=== PATIENT | male | born 1955 | race Caucasian/White ===

== ENCOUNTER 2017-03-31 18:22 | Emergency (ER) | payer MEDICAID ==
[~2017-03-31] VITALS: Ht 180.3 cm; Wt 83.9 kg
--- NOTE | 2017-03-31 18:28 | NUR ---
[id number] [facility] [address]: SOB, WEAKNESS, Hx OF STAGE IV METASTATIC LUNG CANCER, NAD NOTED, VSS, WAITING FOR MD XIE.
--- NOTE | 2017-03-31 19:19 | NUR ---
RECEIVED REPORT FROM PEDRO DAVILA FOR REFUGIO. DR. RAMESH AT BEDSIDE FOR EVAL.
[2017-03-31] MEDS ORDERED: IV NS 0.9% 500 ML BAG IV ONE (19:30)
[2017-03-31 19:45] LABS: BASOPHILS # (AUTO) 0.1 /CMM (0.0-0.2); BASOPHILS % (AUTO) 1.3 % (0.0-2.0); EOSINOPHILS # (AUTO) 0.1 /CMM (0.0-0.7); EOSINOPHILS % (AUTO) 0.8 % (0.0-6.0); HEMATOCRIT 46 % (39-51); HEMOGLOBIN 15.7 g/dL (13.5-17.5); LYMPHOCYTES # (AUTO) 0.8 /CMM (0.8-4.8); LYMPHOCYTES % (AUTO) 7.4 % (20.0-44.0); MEAN CORPUSCULAR HEMOGLOBIN 31 PG (26.0-33.0); MEAN CORPUSCULAR HGB CONC 34 g/dl (31.0-36.0); MEAN CORPUSCULAR VOLUME 90 fL (80-96); MONOCYTES # (AUTO) 0.6 /CMM (0.1-1.30); MONOCYTES % (AUTO) 5.4 % (2.0-12.0); NEUTROPHILS # (AUTO) 9.7 /CMM (1.8-8.9); NEUTROPHILS % (AUTO) 85.1 % (43.0-81.0); PLATELET COUNT (AUTO) 121 /CMM (150-450); RDW COEFFICIENT OF VARIATION 14.6 (11.5-15.0); RED BLOOD CELL COUNT(AUTO) 5.07 MIL/uL (4.5-6.0); WHITE BLOOD COUNT (AUTO) 11.3 K/uL (4.3-11.0)
[2017-03-31 19:48] LABS: CALCIUM, SERUM 8.5 mg/dL (8.5-10.1); CARBON DIOXIDE 31 mmol/L (21-32); CHLORIDE 107 mmol/L (98-107); GLUCOSE 81 mg/dL (74-106); POTASSIUM 3.5 mmol/L (3.5-5.1); SODIUM SERUM 141 mmol/L (136-145); UREA NITROGEN, BLOOD 28 mg/dL (7-18)
--- NOTE | 2017-03-31 19:48 | NUR ---
RADIOLOGY AT BEDSIDE FOR XR
[2017-03-31 19:52] LABS: INR 0.9 (0.87-1.13); PROTHROMBIN TIME 9.4 SECS (9.5-12.7)
[2017-03-31 19:54] LABS: ALANINE AMINOTRANSFERASE 48 U/L (12-78); ALBUMIN 2.6 g/dL (3.4-5.0); ALKALINE PHOSPHATASE 84 U/L (46-116); ASPARTATE AMINOTRANSFERASE 27 U/L (15-37); BILIRUBIN,DIRECT 0.2 mg/dL (0.0-0.2); BILIRUBIN,TOTAL 0.9 mg/dL (0.2-1.0); TOTAL PROTEIN, SERUM 5.9 g/dL (6.4-8.2)
[2017-03-31 19:56] LABS: TROPONIN I < 0.017 ng/mL (0.00-0.056)
[2017-03-31] MEDS ORDERED: IV NS 0.9% 250 ML IV ONE (20:02)
[2017-03-31] MEDS ORDERED: IOHEXOL-350 100 ML VIAL IV ONE (20:02)
--- NOTE | 2017-03-31 20:02 | NUR ---
PT TO CT VIA WC. PT STABLE
--- NOTE | 2017-03-31 20:22 | NUR ---
PT RETURNED FROM CT.
[2017-03-31 20:42] LABS: BAND % (MANUAL) 6 % (0.0-5.0); LYMPHOCYTES % (MANUAL) 12 % (16-48); MONOCYTES % (MANUAL) 10 % (0-11.0); NEUTROPHILS % (MANUAL) 72 (42-76)
--- NOTE | 2017-03-31 20:46 | NUR ---
AT BEDSIDE FOR EVAL.
[2017-03-31] MEDS ORDERED: IV NS 0.9% 1,000 ML BAG IV ONE (21:00)
--- NOTE | 2017-03-31 21:05 | NUR ---
Patient does not wish to proceed with medical care recommended by Dr. Lo. Patient given information related to possible complications, up to and including , which could occur as a result of leaving the hospital at this time. Patient verbalizes understanding of risks involved due to leaving against medical advice. Patient has signed AMA form.
--- NOTE | 2017-03-31 21:23 | NUR ---
Patient discharged to home in stable condition. Written and verbal after care instructions given. Patient verbalizes understanding of instruction. ambulatory with a steady gait. w/c per pt request. pt instructed not to drive. pt verbalize understanding.
[2017-03-31 21:24] VITALS: BP 126/58
[2017-04-01] MEDS ORDERED: HYDR5TAB2 PO (14:58)
[2017-04-01] MEDS ORDERED: LEVE500T9 PO (14:58)
[2017-04-01] MEDS ORDERED: MIDO5TAB PO (14:58)
[2017-04-01] MEDS ORDERED: HYDR-3026 PO (14:59)
[2017-04-01] MEDS ORDERED: TIOT18CA3 IH (15:05)
== END 2017-03-31 21:25 | disposition left against medical advice (07) ==
LOC: ER 18:27
DX: R09.02 Hypoxemia (principal); R55 Syncope and collapse; C34.90 Malignant neoplasm of unspecified part of unspecified bronchus or lung; Z92.21 Personal history of antineoplastic chemotherapy
CPT/HCPCS: 36415; 71010; 71275; 80048; 80076; 84484; 85025; 85730; 93005; 99285; A4606; J7040 ×2; J7050; Q9967; Z7610

== ENCOUNTER 2017-04-01 14:41 | Inpatient (IN) | payer MEDICAID ==
[~2017-04-01] VITALS: Ht 193 cm; Wt 81.6 kg
--- NOTE | 2017-04-01 14:50 | NUR ---
[id number] FROM HOME: BILATERAL LOWER EXTREMITIES EDEMA, POSSIBLE CELLULITIS. GENERALIZED BODY WEAKNESS. BS IN FIELD 128. A/OX 4. BREATHING EVEN AND UNLABORED. NO SOB. VITALS STABLE. SAFETY AND COMFORT MEAURES IN PLACE. AWAITING MD ORDERS.
--- NOTE | 2017-04-01 14:55 | NUR ---
NEW IV STARTED ON LAC, 20 G. BLOOD DRAWN AND SENT TO LAB. IVF STARTED PER MD ORDERS.
[2017-04-01] MEDS ORDERED: MIDO5TAB PO (14:58)
[2017-04-01] MEDS ORDERED: LEVE500T9 PO (14:58)
[2017-04-01] MEDS ORDERED: HYDR5TAB2 PO (14:58)
[2017-04-01] MEDS ORDERED: HYDR-3026 PO (14:59)
[2017-04-01] MEDS ORDERED: IV NS 0.9% 1,000 ML BAG IV ONE (15:00)
[2017-04-01 15:02] LABS: BASOPHILS # (AUTO) 0.2 /CMM (0.0-0.2); BASOPHILS % (AUTO) 1.9 % (0.0-2.0); EOSINOPHILS # (AUTO) 0.1 /CMM (0.0-0.7); EOSINOPHILS % (AUTO) 0.6 % (0.0-6.0); HEMATOCRIT 47 % (39-51); HEMOGLOBIN 15.7 g/dL (13.5-17.5); LYMPHOCYTES # (AUTO) 0.8 /CMM (0.8-4.8); LYMPHOCYTES % (AUTO) 8.1 % (20.0-44.0); MEAN CORPUSCULAR HEMOGLOBIN 31 PG (26.0-33.0); MEAN CORPUSCULAR HGB CONC 34 g/dl (31.0-36.0); MEAN CORPUSCULAR VOLUME 92 fL (80-96); MONOCYTES # (AUTO) 0.6 /CMM (0.1-1.30); MONOCYTES % (AUTO) 5.8 % (2.0-12.0); NEUTROPHILS # (AUTO) 8.2 /CMM (1.8-8.9); NEUTROPHILS % (AUTO) 83.6 % (43.0-81.0); PLATELET COUNT (AUTO) 127 /CMM (150-450); RDW COEFFICIENT OF VARIATION 14.4 (11.5-15.0); RED BLOOD CELL COUNT(AUTO) 5.13 MIL/uL (4.5-6.0); WHITE BLOOD COUNT (AUTO) 9.9 K/uL (4.3-11.0)
[2017-04-01] MEDS ORDERED: TIOT18CA3 IH (15:05)
[2017-04-01 15:11] LABS: CALCIUM, SERUM 8.6 mg/dL (8.5-10.1); CARBON DIOXIDE 31 mmol/L (21-32); CHLORIDE 108 mmol/L (98-107); CREATININE 1.1 mg/dL (0.6-1.3); GLUCOSE 120 mg/dL (74-106); POTASSIUM 3.5 mmol/L (3.5-5.1); SODIUM SERUM 143 mmol/L (136-145); UREA NITROGEN, BLOOD 24 mg/dL (7-18)
[2017-04-01 15:15] LABS: INR 0.93 (0.87-1.13); PROTHROMBIN TIME 9.7 SECS (9.5-12.7)
--- NOTE | 2017-04-01 15:20 | NUR ---
PATIENT TAKEN TO CT VIA STRETCHER.
[2017-04-01 15:23] LABS: TROPONIN I < 0.017 ng/mL (0.00-0.056)
--- NOTE | 2017-04-01 15:27 | NUR ---
PATIENT RETURNED FROM CT. US TECH AT BEDSIDE.
--- NOTE | 2017-04-01 17:02 | NUR ---
Bed 312-2
--- NOTE | 2017-04-01 17:18 | NUR ---
REPORT GIVEN TO RNDEBORA FOR ADMISSION.
[2017-04-01 18:00] VITALS: BP 96/52
[2017-04-01] MEDS ORDERED: LEVETIRACETAM (250 MG) 250 MG TABLET PO SCH (18:00)
[2017-04-01] MEDS ORDERED: MIDODRINE HCL (5MG) 5 MG TABLET PO SCH (18:00)
[2017-04-01] MEDS: HYDROCORTISONE 5 MG TABLET PO SCH (18:00)
--- NOTE | 2017-04-01 18:05 | NUR ---
PATIENT TRANSPORTED TO [facility] VIA STRETCHER. RNDEBORA TO PROVIDE REFUGIO.
[2017-04-01] MEDS ORDERED: hydrOXYzine PAMOATE 25 MG CAPSULE PO PRN (18:30)
[2017-04-01] MEDS ORDERED: MAGNESIUM HYDROXIDE 30 ML UDC PO PRN (19:00)
[2017-04-01] MEDS ORDERED: ONDANSETRON HCL/PF 4 MG/2 ML VIAL IVP PRN (19:00)
[2017-04-01] MEDS ORDERED: ACETAMINOPHEN 325 MG TABLET PO PRN (19:00)
[2017-04-01] MEDS ORDERED: HYDROCODONE/APAP 10/325MG 1 EA TABLET PO PRN (19:00)
[2017-04-01] MEDS ORDERED: MAG HYDROX/AL HYDROX/SIMETH 30 ML UDC PO PRN (19:00)
[2017-04-01] MEDS ORDERED: Z GUARD REMEDY 2 OZ OINT TP PRN (19:00)
[2017-04-01] MEDS ORDERED: ZOLPIDEM TARTRATE 5 MG TABLET PO PRN (19:00)
[2017-04-01] MEDS ORDERED: HYDROCODONE/APAP 5/325MG 1 EACH TABLET PO PRN (19:00)
--- NOTE | 2017-04-01 19:04 | NUR ---
MST/RN - Notes Admitted patient from ER who came in for generalized weakness and BLE swelling. Patient awake, A/O x 3, denies pain, no apparent distress seen. Patient oriented to the room and use of call light. All belongings accounted. Skin assessment done and documented. Wound nurse and dietary triggered. All needs attended and met. Admission orders noted and carried out. Pharmacy notified that meds scheduled at 1800 not available in the [facility]. Will endorse to night RN for continuity of care.
--- NOTE | 2017-04-01 19:30 | NUR ---
RN OPENING NOTES RECEIVED REPORT FROM DAYSHIFT RN. FOUND Pt AWAKE, RESTING IN BED. SLIGHTLY DESATING TO 88% FOR O2. PLACED Pt ON NC 2L. Pt IS ASYMPTOMATIC. DENIES ANY SOB OR CHEST PAIN. NO OTHER S/S OF ACUTE DISTRESS NOTED. Pt IS A/OX3, VERBAL, ABLE TO MAKE NEEDS KNOWN. IV ACCESS ON LAC #20G. SAFETY MEASURES IN PLACE. BED LOW, LOCKED, HOB ELEVATED, SIDE RAILS UP, CALL LIGHT AND BEDSIDE TABLE WITHIN REACH. WILL CONTINUE TO MONITOR Pt THROUGHOUT THE NIGHT FOR SAFETY.
[2017-04-01 20:00] VITALS: BP 103/66
[2017-04-01 20:11] VITALS: BP 103/66
[2017-04-01] MEDS ORDERED: FLU VACC QS 2017-18(36MOS+)/PF 0.5 ML DISP.SYRIN IM ONE (21:30)
[2017-04-01] MEDS ORDERED: PNEUMOCOCCAL 23-VAL P-SAC VAC 0.5 ML VIAL SQ ONE (21:30)
[2017-04-01] MEDS: MIDODRINE HCL (5MG) 5 MG TABLET PO SCH (21:47)
[2017-04-01] MEDS: ENOXAPARIN SODIUM 40 MG/0.4 ML DISP.SYRIN SQ SCH (21:49)
[2017-04-01] MEDS: IV NS 0.9% 1,000 ML IV PRN (22:13)
--- NOTE | 2017-04-02 06:35 | NUR ---
RN CLOSING NOTES NO SIGNIFICANT CHANGES IN Pt's CONDITION. Pt REMAINS STABLE AT THIS TIME. NO S/S OF ACUTE DISTRESS OR SEVERE SOB NOTED DURING THE NIGHT. ALL NEEDS MET AND ATTENDED TO. SAFETY MEASURES IN PLACE. BED LOW, LOCKED, HOB ELEVATED, SIDE RAILS UP, CALL LIGHT AND BEDSIDE TABLE WITHIN REACH. WILL ENDORSE TO DAYSHIFT RN FOR Pt's REFUGIO.
--- NOTE | 2017-04-02 07:30 | NUR ---
RN MS NOTES PATIENT ALERT AND ORIENTED X4, BREATHING EVEN AND UNLABORED, NO SOB, NO DISTRESS NOTED, ON O2 AT 2LPM VIA NC WITH SPO2 OF 92%, PIV PATENT AND FLUSHES WELL, IVF INFUSING AT 75CC/HR, NEEDS ATTENDED AND MET, SAFETY MEASURES IN PLACED, CALL LIGHT WITHIN REACH, WILL CONTINUE TO MONITOR.
[2017-04-02] MEDS: IPRATROPIUM NEB FS 0.5 MG/2.5 ML AMPUL.NEB NEB SCH ×4 (07:35→20:29)
[2017-04-02 08:00] VITALS: BP 86/48
[2017-04-02] MEDS: HYDROCORTISONE 5 MG TABLET PO SCH ×2 (08:47→16:40)
[2017-04-02] MEDS: MIDODRINE HCL (5MG) 5 MG TABLET PO SCH ×3 (08:48→16:40)
[2017-04-02] MEDS ORDERED: TIOTROPIUM BROMIDE 6 CAP/BOX CAP.W.DEV IH SCH (09:00)
[2017-04-02] MEDS: IV NS 0.9% 1,000 ML IV PRN (12:14)
[2017-04-02 12:15] LABS: BASOPHILS % (AUTO) 0.1 % (0.0-2.0); EOSINOPHILS % (AUTO) 0.4 % (0.0-6.0); HEMATOCRIT 39 % (39-51); HEMOGLOBIN 13.5 g/dL (13.5-17.5); LYMPHOCYTES # (AUTO) 0.6 /CMM (0.8-4.8); LYMPHOCYTES % (AUTO) 6.4 % (20.0-44.0); MEAN CORPUSCULAR HEMOGLOBIN 31 PG (26.0-33.0); MEAN CORPUSCULAR HGB CONC 35 g/dl (31.0-36.0); MEAN CORPUSCULAR VOLUME 90 fL (80-96); MONOCYTES # (AUTO) 0.5 /CMM (0.1-1.30); MONOCYTES % (AUTO) 5.5 % (2.0-12.0); NEUTROPHILS # (AUTO) 7.8 /CMM (1.8-8.9); NEUTROPHILS % (AUTO) 87.6 % (43.0-81.0); PLATELET COUNT (AUTO) 100 /CMM (150-450); RDW COEFFICIENT OF VARIATION 15.4 (11.5-15.0); WHITE BLOOD COUNT (AUTO) 8.9 K/uL (4.3-11.0)
[2017-04-02] MEDS ORDERED: IV NS 0.9% 1,000 ML IV PRN (12:23)
[2017-04-02 12:40] LABS: CALCIUM, SERUM 7.7 mg/dL (8.5-10.1); CREATININE 0.8 mg/dL (0.6-1.3); MAGNESIUM 1.8 mg/dL (1.8-2.4); PHOSPHORUS 3.1 mg/dL (2.5-4.9); POTASSIUM 3.5 mmol/L (3.5-5.1)
[2017-04-02 12:49] LABS: THYROID STIMULATING HORMONE 1.261 uIU/mL (0.358-3.74)
[2017-04-02] MEDS ORDERED: FEE PK DOSING 1 MIN EA MC ONE (13:38)
[2017-04-02 14:00] VITALS: BP 85/50
[2017-04-02] MEDS: VANCOMYCIN 1.25 GM in IV D5W 500 ML IV SCH ×2 (14:38→22:28)
[2017-04-02 15:04] VITALS: BP_SYST 110; BP_SYST 99; BP_DIAS 59; BP_DIAS 66
--- NOTE | 2017-04-02 15:05 | NUR ---
RN MS NOTES ORTHOSTATIC COMPLETED FOR LYING AND SITTING ONLY, PATIENT UNABLE TO DO STANDING D/T WEAKNESS. PATIENT IS TOO WEAK TO STAND UP BY HIMSELF, ASSISTED BY PT FROM BED TO COMMODE, HOWEVER, PATIENT COULDN'T STAND STRAIGHT FOR A LONG TIME.
--- NOTE | 2017-04-02 15:24 | NUR ---
MRI APPROVED BY DR. BELLO. ANODE REBUILDER WILL BE NOTIFIED SOON.
[2017-04-02] MEDS: MEROPENEM 1 G in IV NS 0.9% 100 ML IV SCH (15:58)
[2017-04-02 16:00] VITALS: BP 85/50
[2017-04-02 16:13] LABS: URIC ACID 4.7 mg/dL (2.6-7.2)
--- NOTE | 2017-04-02 16:32 | NUR ---
RN MS NOTES UNABLE TO OBTAIN RECORDS FROM DR. DALY, OFFICE CLOSED FOR TODAY.
--- NOTE | 2017-04-02 19:30 | NUR ---
MS/RN OPENING NOTES PT AWAKE, A/OX3. ABLE TO MAKE NEEDS KNOWN. ON 3L O2 VIA NC, BREATHING EVEN AND UNLABORED. NO APPARENT SIGNS OF DISTRESS. DENIES SOB. DENIES PAIN. CURRENTLY ON NPO STATUS FOR CT OF ABDOMEN AND CHEST W/WO CONTRAST. CONSENTS SIGNED. MRI OF BRAIN TOMORROW, CONSENT SIGNED. IV TO LAC PATENT AND INTACT RUNNING IVF ORDERED. NO INFILTRATION NOTED. BED IN LOW/LOCKED POSITION WITH CALL LIGHT IN REACH. SIDE RAILS UPX2. BED ALARM ON FOR SAFETY. WILL CONTINUE MONITOR
--- NOTE | 2017-04-02 19:33 | NUR ---
RN MS NOTES PATIENT ALERT AND ORIENTED X3, BP LOW BUT ASYMPTOMATIC, NO S/SX OF DISTRESS NOTED, ON O2 AT 3LPM VIA NC WITH SPO2 OF 89-92%, PER PATIENT ITS HIS BASELINE DUE TO COPD, AND DOES NOT WANT HIS OXYGEN INCREASED. PATIENT IS ON BREATHING TREATMENT EVERY 6 HOURS, PER PATIENT HE FEELS BETTER AFTER EACH TREATMENT. PATIENT IS CURRENTLY NPO AT THIS TIME DUE TO PENDING CT CHEST AND ABDOMEN, CONSENTS SIGNED AND PLACED IN CHART. PATIENT IS ON IVF AND TOLERATING WELL, ALL DUE MEDICATIONS GIVEN ORDERED, MRI WILL BE DONE TOMORROW PER TECH, KEEP PATIENT NPO AFTER MIDNIGHT FOR MRI. ALL NEEDS ATTENDED AND MET, CALL LIGHT WITHIN REACH, ENDORSED TO PRINTING AGENT FOR REFUGIO.
[2017-04-02] MEDS ORDERED: IOHEXOL-300 100 ML VIAL IV ONE (19:58)
[2017-04-02] MEDS ORDERED: IV NS 0.9% 250 ML IV ONE (19:58)
[2017-04-02 20:00] VITALS: BP 94/55
--- NOTE | 2017-04-02 20:04 | NUR ---
MS/RN PT WENT DOWN FOR CT SCAN
--- NOTE | 2017-04-02 20:33 | NUR ---
MS/RN NOTES PT RETURNED TO UNIT
[2017-04-02] MEDS: LEVETIRACETAM (250 MG) 250 MG TABLET PO SCH (21:05)
[2017-04-02] MEDS: ENOXAPARIN SODIUM 40 MG/0.4 ML DISP.SYRIN SQ SCH (21:22)
--- NOTE | 2017-04-02 23:49 | NUR ---
MS/RN NOTES VANCO CURRENTLY INFUSING. FREQUENTLY BEEPS DUE TO PT MOVING ARM. PT REFUSING SECOND IV INSERTION AT THIS TIME IN ORDER TO START MERREM. WILL BEGIN MERREM UPON VANCO COMPLETION
[2017-04-03] MEDS: MEROPENEM 1 G in IV NS 0.9% 100 ML IV SCH ×4 (00:33→23:37)
[2017-04-03] MEDS: IPRATROPIUM NEB FS 0.5 MG/2.5 ML AMPUL.NEB NEB SCH ×4 (02:11→20:17)
[2017-04-03] MEDS: VANCOMYCIN 1.25 GM in IV D5W 500 ML IV SCH ×2 (05:49→21:42)
--- NOTE | 2017-04-03 07:00 | NUR ---
RN NOTES: PATIENT RESTING IN BED. ALERT ORIENTED X3. NONLABORED BREATHING NOTED ON 3L NASAL CANNULA. IV SITE PATENT AND INTACT. PATIENT DENIES PAIN AT THE MOMENT. BED IN LOWEST LOCKED POSITION. WILL CONTINUE TO MONITOR. CALL LIGHT WITHIN REACH
--- NOTE | 2017-04-03 07:29 | NUR ---
MS/RN CLOSING NOTES PT ASLEEP, EASILY AROUSABLE TO NAME. REMAINS ON 3L O2 VIA NC, BREATHING EVEN AND UNLABORED. DENIES SOB AND PAIN. NO APPARENT DISTRESS NOTED. IV TO LAC PATENT AND INTACT CURRENTLY RUNNING VANCO. ENDORSED TO AM SHIFT RN TO INFUSE MERREM UPON COMPLETION OF VANCO. MRI OF BRAIN TODAY. CONSENT/CHECKLIST IN CHART. MADE PT COMFORTABLE DURING SHIFT. ALL NEEDS MET. BED IN LOW/LOCKED POSITION WITH CALL LIGHT IN REACH. SIDE RAILS UPX2 AND BED ALARM ON FOR SAFETY. DAY SHIFT RN TO FOLLOW UP WITH [facility] FOR PT'S MEDICAL RECORDS.
[2017-04-03 07:42] LABS: BASOPHILS % (AUTO) 0.2 % (0.0-2.0); EOSINOPHILS # (AUTO) 0.1 /CMM (0.0-0.7); EOSINOPHILS % (AUTO) 0.8 % (0.0-6.0); HEMATOCRIT 33 % (39-51); HEMOGLOBIN 11.6 g/dL (13.5-17.5); LYMPHOCYTES # (AUTO) 0.5 /CMM (0.8-4.8); MEAN CORPUSCULAR HEMOGLOBIN 32 PG (26.0-33.0); MEAN CORPUSCULAR HGB CONC 35 g/dl (31.0-36.0); MEAN CORPUSCULAR VOLUME 90 fL (80-96); MONOCYTES # (AUTO) 0.5 /CMM (0.1-1.30); MONOCYTES % (AUTO) 6.8 % (2.0-12.0); NEUTROPHILS # (AUTO) 5.8 /CMM (1.8-8.9); NEUTROPHILS % (AUTO) 85.2 % (43.0-81.0); PLATELET COUNT (AUTO) 81 /CMM (150-450); RDW COEFFICIENT OF VARIATION 15.3 (11.5-15.0); RED BLOOD CELL COUNT(AUTO) 3.69 MIL/uL (4.5-6.0); WHITE BLOOD COUNT (AUTO) 6.9 K/uL (4.3-11.0)
[2017-04-03 08:00] VITALS: BP 92/53
[2017-04-03 08:06] LABS: CALCIUM, SERUM 7.4 mg/dL (8.5-10.1); CREATININE 0.7 mg/dL (0.6-1.3); MAGNESIUM 1.5 mg/dL (1.8-2.4); PHOSPHORUS 2.8 mg/dL (2.5-4.9); POTASSIUM 3.2 mmol/L (3.5-5.1)
[2017-04-03 09:14] LABS: BAND % (MANUAL) 6 % (0.0-5.0); EOSINOPHILS % (MANUAL) 3 % (0-4); LYMPHOCYTES % (MANUAL) 3 % (16-48); MONOCYTES % (MANUAL) 8 % (0-11.0); NEUTROPHILS % (MANUAL) 80 (42-76)
[2017-04-03] MEDS ORDERED: GADOVERSETAMIDE 2.5 MMOL/5 ML VIAL IJ ONE (09:29)
[2017-04-03] MEDS: LEVETIRACETAM (250 MG) 250 MG TABLET PO SCH ×2 (09:41→16:19)
[2017-04-03] MEDS: MIDODRINE HCL (5MG) 5 MG TABLET PO SCH ×3 (09:42→16:19)
[2017-04-03] MEDS: HYDROCORTISONE 5 MG TABLET PO SCH ×2 (09:42→16:18)
--- NOTE | 2017-04-03 10:00 | NUR ---
RN NOTES: IV ANTIBIOTICS ADMINISTERED LATE. PREVIOUS INFUSION, VANCOMYCIN WAS STILL INFUSING UPON INITIAL ASSESSMENT. PATIENT LEFT AT 0800 FOR MRI FOR THE BRAIN. IV ADMINISTERED WHEN PATIENT CAME BACK ON TO THE UNIT
[2017-04-03] MEDS: POTASSIUM CHLORIDE 20 MEQ TAB.PRT.SR PO SCH ×3 (11:26→12:45)
[2017-04-03] MEDS: Magnesium 1GM/D5W 100ML PREMIX 100 ML IV SCH ×2 (11:29→12:45)
[2017-04-03 16:08] VITALS: BP 94/64
--- NOTE | 2017-04-03 18:08 | NUR ---
rn notes: CONTACTED [facility] SEVERAL TIMES. CENTER IS CLOSED TODAY DUE TO 'S DAY. ALSO VOICEMAIL IS FULL
--- NOTE | 2017-04-03 19:20 | NUR ---
RN NOTES: PATIENT RESTING IN BED. ALERT ORIENTED X3. NONLABORED BREATHING NOTED ON 3L NASAL CANNULA. IV SITE PATENT AND INTACT. PATIENT DENIES PAIN AT THE MOMENT. BED IN LOWEST LOCKED POSITION. CALL LIGHT WITHIN REACH. WILL ENDORSE TO NEXT SHIFT.
--- NOTE | 2017-04-03 19:57 | NUR ---
MS/RN OPENING NOTES PATIENT IN BED, AWAKE, ALERT X3, ABLE TO FOLLOW SIMPLE COMMANDS AND RESPOND WITH SHORT ANSWER. PROVIDED FLUIDS AND USING HIS CELLPHONE. CALL LIGHTS WITHIN REACH, PERSONAL BELONGINGS WITHIN REACH. DENIES PAIN. RECEIVE REPORT FROM AM RN REGARDING REFUGIO AND AWAITING AND TO F/U PREVIOUS MEDICAL RECORDS FROM [facility] TO PROVIDE TO MD TO DETERMINE CONDITION PROCEDURE MRI DONE AND MD MADE AWARE. WILL CONTINUE TO PROVIDE CARE.
[2017-04-03 20:00] VITALS: BP 94/59
[2017-04-03] MEDS: IV NS 0.9% 1,000 ML IV PRN (20:04)
[2017-04-03] MEDS ORDERED: VANCOMYCIN 0.75 GM in IV D5W 250 ML IV SCH (22:00)
--- NOTE | 2017-04-04 01:00 | NUR ---
MS/RN NOTES PATENT REFUSED TO HAVE IVRUNNING WHILE SLEEPING WILL PROVIDE FLUIDS. AND MONITOR
[2017-04-04] MEDS: IPRATROPIUM NEB FS 0.5 MG/2.5 ML AMPUL.NEB NEB SCH ×4 (01:30→19:28)
[2017-04-04] MEDS: MEROPENEM 1 G in IV NS 0.9% 100 ML IV SCH ×3 (05:25→21:53)
[2017-04-04 06:43] LABS: EOSINOPHILS # (AUTO) 0.1 /CMM (0.0-0.7); EOSINOPHILS % (AUTO) 1.1 % (0.0-6.0); HEMATOCRIT 31 % (39-51); LYMPHOCYTES # (AUTO) 0.4 /CMM (0.8-4.8); LYMPHOCYTES % (AUTO) 7.5 % (20.0-44.0); MEAN CORPUSCULAR HEMOGLOBIN 31 PG (26.0-33.0); MEAN CORPUSCULAR HGB CONC 35 g/dl (31.0-36.0); MEAN CORPUSCULAR VOLUME 90 fL (80-96); MONOCYTES # (AUTO) 0.5 /CMM (0.1-1.30); MONOCYTES % (AUTO) 8.5 % (2.0-12.0); NEUTROPHILS # (AUTO) 4.6 /CMM (1.8-8.9); NEUTROPHILS % (AUTO) 82.9 % (43.0-81.0); PLATELET COUNT (AUTO) 89 /CMM (150-450); RDW COEFFICIENT OF VARIATION 14.9 (11.5-15.0); RED BLOOD CELL COUNT(AUTO) 3.51 MIL/uL (4.5-6.0); WHITE BLOOD COUNT (AUTO) 5.5 K/uL (4.3-11.0)
--- NOTE | 2017-04-04 06:46 | NUR ---
312-1/MS/RN NOTES PATIENT IN BED, ASSIST WITH NEEDS, VERBALIZE NO PAIN BUT REQUIRE ASSISTANCE IN REPOSITIONING, KEPT CALL LIGHTS WITHIN REACH.IV ATN ADMINISTERED W/ NO S/S OF ADVERSE REACTION,WILL ENDORSE TO AM RN FOR REFUGIO.
[2017-04-04 06:58] LABS: ALBUMIN 1.5 g/dL (3.4-5.0); BILIRUBIN,TOTAL 0.7 mg/dL (0.2-1.0); CALCIUM, SERUM 7.6 mg/dL (8.5-10.1); CREATININE 0.8 mg/dL (0.6-1.3); MAGNESIUM 1.8 mg/dL (1.8-2.4); POTASSIUM 3.4 mmol/L (3.5-5.1); TOTAL PROTEIN, SERUM 4.4 g/dL (6.4-8.2)
--- NOTE | 2017-04-04 07:00 | NUR ---
RN NOTES: PATIENT RESTING IN BED. ALERT ORIENTED X3. NONLABORED BREATHING NOTED. IV SITE PATENT AND INTACT. PATIENT DENIES PAIN AT THE MOMENT. BED IN LOWEST LOCKED POSITION. CALL LIGHT WITHIN REACH. WILL CONTINUE TO MONITOR
[2017-04-04 08:00] VITALS: BP 93/53
[2017-04-04] MEDS: ALBUTEROL FS 2.5 MG/0.5 ML VIAL.NEB NEB PRN ×2 (08:02→13:35)
[2017-04-04 09:03] LABS: BAND % (MANUAL) 3 % (0.0-5.0); EOSINOPHILS % (MANUAL) 1 % (0-4); LYMPHOCYTES % (MANUAL) 6 % (16-48); METAMYELOCYTES % 2 % (0-0); MONOCYTES % (MANUAL) 6 % (0-11.0); MYELOCYTES % 2 % (0-0); NEUTROPHILS % (MANUAL) 80 (42-76)
[2017-04-04] MEDS: HYDROCORTISONE 5 MG TABLET PO SCH (09:29)
[2017-04-04] MEDS: LEVETIRACETAM (250 MG) 250 MG TABLET PO SCH ×2 (09:29→18:22)
[2017-04-04] MEDS: MIDODRINE HCL (5MG) 5 MG TABLET PO SCH ×3 (09:30→18:23)
[2017-04-04] MEDS: VANCOMYCIN 1.25 GM in IV D5W 500 ML IV SCH ×2 (09:31→20:00)
[2017-04-04] MEDS: POTASSIUM CHLORIDE 20 MEQ TAB.PRT.SR PO SCH ×3 (11:17→12:23)
[2017-04-04] MEDS: HYDROCORTISONE SOD SUCCINATE 100 MG/2 ML VIAL IV SCH ×3 (12:24→18:23)
[2017-04-04] MEDS: IV NS 0.9% 1,000 ML IV PRN ×2 (15:21→19:54)
[2017-04-04 16:00] VITALS: BP 103/65
--- NOTE | 2017-04-04 19:20 | NUR ---
RN NOTES: PATIENT RESTING IN BED. ALERT ORIENTED X3. NONLABORED BREATHING NOTED. IV SITE PATENT AND INTACT. PATIENT DENIES PAIN AT THE MOMENT. BED IN LOWEST LOCKED POSITION. CALL LIGHT WITHIN REACH. [facility] WAS CLOSED TODAY. ENDORSED TO FOLLOW UP WITH [facility] REGARDING PATIENT'S PREVIOUS RECORDS
--- NOTE | 2017-04-04 19:36 | NUR ---
MS/RN OPENING NOTES PATIENT IN BED, AWAKE, ALERT, ON BREATHING TX BY RT. SKIN INTACT AND DRY, RECEIVE REPORT FROM AM RN FOR REFUGIO, WILL CONTINUE TO PROVIDE CARE, CALL LIGHTS WITHIN REACH, BED IN LOCK POSITION. WILL CONTINUE TO PROVIDE CARE.
[2017-04-04 20:09] VITALS: BP 95/58
[2017-04-04 23:45] VITALS: BP 95/58
[2017-04-05] MEDS: IPRATROPIUM NEB FS 0.5 MG/2.5 ML AMPUL.NEB NEB SCH ×3 (01:30→13:40)
--- NOTE | 2017-04-05 02:12 | NUR ---
pt spo2 89% on room air, taking out 02 while sleeping, place back on 02 3L pt refused tx a& stated come back later not right now Addendum: 04/05/17 at 0214 by IVETTE MEJIA RT Amended: Links added.
[2017-04-05] MEDS: MEROPENEM 1 G in IV NS 0.9% 100 ML IV SCH ×2 (05:05→14:39)
--- NOTE | 2017-04-05 06:39 | NUR ---
312-1 PATIENT IN BED COOPERATIVE TO CARE, RESPIRATIONS EVENAND AND UN LABORED.ASSISTANCE FOR SAFETY. WILL ENDORSE TO AM RN. DENIES PAIN.WILL CONTINUE TO MONITOR.
--- NOTE | 2017-04-05 07:51 | NUR ---
RN OPENING NOTES PATIENT AWAKE RESTING COMFORTABLY IN BED. AOX3. RESPIRATIONS EVEN AND UNLABORED. NO ACUTE DISTRESS NOTED. DENIES ANY PAIN AT THIS TIME. DENIES SOB AND CP. IV ACCESS ON THE LAC 20G PATENT AND INTACT WITH NS RUNNING AT 200ML/HR. BED LOCKED IN THE LOWEST POSITION WITH SIDE RAILS UP X2. CALL LIGHT WITHIN REACH. WILL CONTINUE TO MONITOR, ASSESS AND EDUCATE PATIENT THROUGHOUT SHIFT.
[2017-04-05 08:00] VITALS: BP 106/71
[2017-04-05] MEDS: MIDODRINE HCL (5MG) 5 MG TABLET PO SCH ×2 (08:52→14:45)
[2017-04-05] MEDS: HYDROCORTISONE SOD SUCCINATE 100 MG/2 ML VIAL IV SCH ×2 (08:52→14:39)
[2017-04-05] MEDS: LEVETIRACETAM (250 MG) 250 MG TABLET PO SCH (08:52)
[2017-04-05 08:54] LABS: BASOPHILS % (AUTO) 0.2 % (0.0-2.0); HEMATOCRIT 33 % (39-51); HEMOGLOBIN 11.4 g/dL (13.5-17.5); LYMPHOCYTES # (AUTO) 0.5 /CMM (0.8-4.8); MEAN CORPUSCULAR HEMOGLOBIN 32 PG (26.0-33.0); MEAN CORPUSCULAR HGB CONC 35 g/dl (31.0-36.0); MEAN CORPUSCULAR VOLUME 90 fL (80-96); MONOCYTES # (AUTO) 0.6 /CMM (0.1-1.30); MONOCYTES % (AUTO) 8.9 % (2.0-12.0); NEUTROPHILS # (AUTO) 5.8 /CMM (1.8-8.9); NEUTROPHILS % (AUTO) 83.9 % (43.0-81.0); PLATELET COUNT (AUTO) 108 /CMM (150-450); RDW COEFFICIENT OF VARIATION 15.2 (11.5-15.0); RED BLOOD CELL COUNT(AUTO) 3.62 MIL/uL (4.5-6.0)
[2017-04-05 09:45] LABS: ALBUMIN 1.5 g/dL (3.4-5.0); BILIRUBIN,TOTAL 0.4 mg/dL (0.2-1.0); CREATININE 0.7 mg/dL (0.6-1.3); MAGNESIUM 1.8 mg/dL (1.8-2.4); PHOSPHORUS 2.9 mg/dL (2.5-4.9); POTASSIUM 3.9 mmol/L (3.5-5.1); TOTAL PROTEIN, SERUM 4.8 g/dL (6.4-8.2)
[2017-04-05 10:00] VITALS: BP_SYST 101; BP_SYST 107; BP_SYST 111; BP_DIAS 67; BP_DIAS 69; BP_DIAS 81
--- NOTE | 2017-04-05 10:00 | NUR ---
RN NOTES NEW IV PLACED. IV INFILTRATED. 22G ON THE LFA PATENT AND INTACT. PATIENT TOLERATED WELL. ONE ATTEMPT.
[2017-04-05] MEDS: VANCOMYCIN 1.25 GM in IV D5W 500 ML IV SCH (10:48)
[2017-04-05 16:00] VITALS: BP 113/69
[2017-04-05 16:54] VITALS: BP 107/79
--- NOTE | 2017-04-05 16:54 | NUR ---
RN CLOSING NOTES PATIENT DISCHARGED IN STABLE CONDITION. EXITCARE AND DISCHARGE EDUCATION GIVEN. PATIENT VERBALIZED UNDERSTANDING. BELONGINGS REVIEWED AND ACCOUNTED FOR. ALL DOCUMENTATION SIGNED. NO ACUTE DISTRESS. RESPIRATIONS EVEN AND UNLABORED. AOX4. DENIES ANY PAIN, CP AND SOB. ALL NEEDS MET. ALL MEDS GIVEN APPROPRIATE.
== END 2017-04-05 17:00 | disposition home or self-care (01) | DRG 424 ==
LOC: ER 14:43 → MED 17:40
DX: E27.40 Unspecified adrenocortical insufficiency (principal); C79.31 Secondary malignant neoplasm of brain; D69.6 Thrombocytopenia, unspecified; I95.9 Hypotension, unspecified; C34.90 Malignant neoplasm of unspecified part of unspecified bronchus or lung; L03.115 Cellulitis of right lower limb; I87.8 Other specified disorders of veins; R55 Syncope and collapse; L03.116 Cellulitis of left lower limb; F32.9 Major depressive disorder, single episode, unspecified; R79.89 Other specified abnormal findings of blood chemistry; M62.50 Muscle wasting and atrophy, not elsewhere classified, unspecified site; Z91.81 History of falling; W19.XXXA Unspecified fall, initial encounter; Y93.9 Activity, unspecified; Y92.009 Unspecified place in unspecified non-institutional (private) residence as the place of occurrence of the external cause; Z79.899 Other long term (current) drug therapy; Z92.21 Personal history of antineoplastic chemotherapy; G62.9 Polyneuropathy, unspecified; T38.0X5A Adverse effect of glucocorticoids and synthetic analogues, initial encounter
CPT/HCPCS: 36415; 70450-TC; 70553-TC; 71010-TC; 71270-TC; 74178; 80048-TC; 80053-TC; 80061-TC; 80202-TC; 82306; 82533; 82550-TC; 82728-TC; 83540-TC; 83615-TC; 83735-TC; 84100-TC; 84425; 84443-TC; 84484-TC; 84550-TC; 85025-TC; 85730-TC; 86022; 87040-TC; 90732; 93307-TC; 93970-TC; 94799-TC; 97110-TC; 97116-TC; 97530-TC; A4606; A9579; J1650; J1720; J2185; J3370; J3475; J7030; J7050; J7060; Q2036; Q9967; Z7610